=== PATIENT | male | born 1995 | race Two or more races ===

== ENCOUNTER 2021-10-05 17:53 | Emergency (ER) | payer MEDICAID, OTHER ==
[~2021-10-05] VITALS: Ht 175.3 cm; Wt 70.3 kg
[2021-10-05 18:20] VITALS: BP 140/79
== END 2021-10-06 02:28 | disposition left against medical advice (07) ==
LOC: ER 17:53 → EDBD 17:53 → ER 10-06 01:43
DX: K59.00 Constipation, unspecified (principal); Z53.21 Procedure and treatment not carried out due to patient leaving prior to being seen by health care provider